=== PATIENT | male | born 1965 | race Caucasian/White ===

== ENCOUNTER 2020-08-09 11:32 | Emergency (ER) | payer MEDICAID ==
[~2020-08-09] VITALS: Ht 165.1 cm; Wt 68.0 kg
[2020-08-09 11:44] VITALS: BP 146/100
== END 2020-08-09 12:36 | disposition home or self-care (01) ==
LOC: ER 11:32
DX: Z48.02 Encounter for removal of sutures (principal)
CPT/HCPCS: 99281

== ENCOUNTER 2022-05-16 13:49 | Emergency (ER) | payer MEDICAID ==
[~2022-05-16] VITALS: Ht 167.6 cm; Wt 75.0 kg
[2022-05-16 13:56] VITALS: BP 125/81
[2022-05-16] MEDS ORDERED: LIDOCAINE HCL/PF 1% 10 MG/ML 5ML VIAL INFIL ONE (16:15)
[2022-05-16] MEDS ORDERED: IBUPROFEN 400MG TABLET PO ONE (16:15)
[2022-05-16] MEDS ORDERED: TETANUS, DIPHTHERIA, PERTUSSIS VAC/PF 0.5ML (>10YR OLD) IM ONE (16:15)
[2022-05-16] MEDS ORDERED: TETANUS AND DIPHTHERIA TOX/PF 0.5ML SYR (ADULT) IM ONE (16:15)
[2022-05-16] MEDS ORDERED: SULF1TAB48 MT (17:38)
[2022-05-16] MEDS ORDERED: CIPR-263 MT (17:38)
== END 2022-05-16 18:03 | disposition home or self-care (01) ==
LOC: ER 13:49
DX: L02.612 Cutaneous abscess of left foot (principal)
CPT/HCPCS: 10060; 73630; 90471; 90715; 99283; J3490; 90714